=== PATIENT | female | born 1970 | race Caucasian/White ===

== ENCOUNTER 2019-04-17 06:10 | Day surgery (SDC) | payer OTHER ==
[~2019-04-17 06:10] MED LIST: SYNTHROID88 MCG PO
[2019-04-17] MEDS ORDERED: PERCOCET 5-3251 EACH PO (08:19)
[2019-04-17] MEDS ORDERED: RECTICARE30 GM TOP (08:20)
== END 2019-04-17 12:30 | disposition home or self-care (01) ==
LOC: CIR.AMB 06:10
DX: K60.1 Chronic anal fissure (principal)